=== PATIENT | female | born 1985 | race African-American/Black ===

== ENCOUNTER 2017-12-02 03:42 | Emergency (ER) | payer SELFPAY ==
[2017-12-02 04:28] LABS: URINE HCG POC HCG NEGATIVE (Negative)
[2017-12-02 05:13] LABS: BILIRUBIN,URINE NEGATIVE (NEG); CLARITY,URINE CLEAR; COLOR,URINE YELLOW; GLUCOSE,URINE NEGATIVE (NEG); NITRITE,URINE NEGATIVE (NEG); PH,URINE 7.5; PROTEIN,URINE NEGATIVE (NEG-TRACE)
[2017-12-02 05:37] LABS: BACTERIA,URINE FEW /HPF (0-FEW); SQUAMOUS EPITHELIAL CELL,UR FEW /LPF; WBC,URINE OCC /HPF (0-4)
[2017-12-04 19:18] LABS: CHLAMYDIA PROBE Negative (Negative); GC PROBE Negative (Negative)
== END 2017-12-02 05:59 | disposition home or self-care (01) ==
LOC: ER 03:42
DX: N93.9 Abnormal uterine and vaginal bleeding, unspecified (principal); J45.909 Unspecified asthma, uncomplicated; F17.210 Nicotine dependence, cigarettes, uncomplicated; F12.10 Cannabis abuse, uncomplicated; Z88.8 Allergy status to other drugs, medicaments and biological substances
CPT/HCPCS: 51701; 81001; 81025; 87491; 87591; 99284; Q0111